=== PATIENT | female | born 1990 ===

== ENCOUNTER 2017-09-22 20:09 | Emergency (ER) | payer MEDICAID ==
[2017-09-22 20:56] VITALS: O2SAT 100
--- NOTE | 2017-09-22 21:21 | ED PDOC ---
HPI: Female Pain Time Seen by Provider: 09/22/17 21:00 Chief Complaint (Nursing): Female Genitourinary Chief Complaint (Provider): : vaginal bleeding History Per: Patient History/Exam Limitations: no limitations Onset/Duration Of Symptoms: Days (2) Current Symptoms Are (Timing): Still Present Quality Of Discomfort: Cramping Additional Complaint(s): 27 y/o female, approximately 5 weeks , presents for evaluation of vaginal bleeding with associated cramping x 2 days. Patient states bleeding was light yesterday, became heavier today with small clots. Denies fever, nausae/vomiting, chest pain, shortness of breath, palpitations, changes in bowel movements, urinary symptoms. Patient has not yet received care Abnormal Vaginal Bleeding: Yes Last Menstral Period: 08/09/17 : 2 Para: 1 Miscarriage: 0 Past Medical History Reviewed: Historical Data, Nursing Documentation, Vital Signs Vital Signs: Last Vital Signs Temp 98.9 F 09/22/17 20:51 Pulse 62 09/22/17 20:51 Resp 17 09/22/17 20:51 BP 128/74 09/22/17 20:51 Pulse Ox 100 09/22/17 20:51 - Medical History PMH: No Chronic Diseases - Surgical History Surgical History: No Surg Hx - Family History Family History: States: No Known Family Hx - Living Arrangements Living Arrangements: With Family - Allergies Allergies/Adverse Reactions: Allergies Allergy/AdvReac Type Severity Reaction Status Date / Time No Known Allergies Allergy Verified 09/22/17 20:56 Review of Systems ROS Statement: Except As Marked, All Systems Reviewed And Found Negative Genitourinary Female: Positive for: Vaginal Bleeding, Pelvic Pain Physical Exam - Reviewed Nursing Documentation Reviewed: Yes Vital Signs Reviewed: Yes - Physical Exam Appears: Positive for: Well, Non-toxic, No Acute Distress Head Exam: Positive for: ATRAUMATIC, NORMAL INSPECTION, NORMOCEPHALIC Skin: Positive for: Normal Color Eye Exam: Positive for: Normal appearance ENT: Positive for: Normal ENT Inspection Cardiovascular/Chest: Positive for: Regular Rate, Rhythm Respiratory: Positive for: Normal Breath Sounds Gastrointestinal/Abdominal: Positive for: Bowel Sounds, Soft. Negative for: Tenderness Pelvic Exam: Positive for: External Exam Normal, No Cerv. Motion Tender, Active Bleeding (minimal. Cervix closed), Other (exam fence erector Vy Mcdaniels RN) Back: Positive for: Normal Inspection Extremity: Positive for: Normal ROM Neurologic/Psych: Positive for: Alert, Oriented (x3) - Laboratory Results Result Diagrams: 09/22/17 21:58 09/22/17 21:58 - ECG O2 Sat by Pulse Oximetry: 100 - Progress ED Course And Treament: labs, urine, u/s EXAM: US , Transvaginal CLINICAL HISTORY: 27 years old, female; Signs and symptoms; Lmp or gestational age (in weeks): Unknown; Other: Bleeding; ; Additional info: , spotting TECHNIQUE: Real-time transvaginal obstetrical ultrasound of the maternal pelvis and a first trimester with image documentation. Transvaginal imaging was used for better evaluation of the fetus and adnexa. COMPARISON: No relevant prior studies available. FINDINGS: Gestation: Very small fluid collection is seen within the endometrium measuring 0.46 cm too small for dates. No internal structures are present. This may represent a small gestational sac The endometrium measures 15 mm Uterus/cervix: Unremarkable. No myometrial mass. 8.4 cm it x cm x 4.6 cm x 6.5 cm. The cervix measures 4.6 cm in length the os is closed. Ovaries: Unremarkable. No mass. RIGHT 2.1 cm x 1.3 cm x 1.9 cm. The LEFT 2.2 cm x 1.5 cm x 2.3 cm Free fluid: No free fluid. IMPRESSION: 1. Intrauterine fluid collection possible small gestational sac. 2. Negative uterus and cervix. 3. Negative ovaries Patient educated on findings, discharged with instructions to follow up with Ob/ Schedule Announcer in 48 hours for re-evaluation Return precautions given Disposition - Clinical Impression Clinical Impression: Threatened miscarriage - Patient ED Disposition Is Patient to be Admitted: No Counseled Patient/Family Regarding: Studies Performed, Diagnosis, Need For Followup - Disposition Disposition: Routine/Home Disposition Time: 23:45 Condition: STABLE Instructions: Threatened Miscarriage
[2017-09-22 22:28] LABS: BASO % 0.4 % (0.0-2.0); EOS # 0.1 K/uL (0.0-0.7); HEMOGLOBIN 11.6 g/dL (12.0-16.0); LYMPH # 1.8 K/uL (1.0-4.3); LYMPH % 31.4 % (20.0-40.0); MEAN CELL VOLUME 86.3 fl (81.0-99.0); MEAN CORPUSCULAR HEMOGLOBIN 28.2 pg (27.0-31.0); MEAN CORPUSCULAR HGB CONC 32.6 g/dL (33.0-37.0); MEAN PLATELET VOLUME 9.5 fl (7.2-11.7); MONO # 0.5 K/uL (0.0-0.8); MONO % 9.4 % (0.0-10.0); NEUT # 3.4 K/uL (1.8-7.0); NEUT % 57.8 % (50.0-75.0); NRBC % 0.1 % (0.0-0.0); RBC 4.12 Mil/uL (3.80-5.20); RED CELL DISTRIBUTION WIDTH 13.6 % (11.5-14.5); WHITE BLOOD COUNT 5.9 K/uL (4.8-10.8)
[2017-09-22 22:59] LABS: ALB/GLOB RATIO 1.3 (1.0-2.1); ALBUMIN 4.3 g/dL (3.5-5.0); AST/SGOT 39 U/L (14-36); BLOOD UREA NITROGEN 18 mg/dl (7-17); CALCIUM 9.2 mg/dL (8.4-10.2); GFR AFRICAN-AMERICAN > 60; GFR NON-AFRICAN AMERICAN > 60
[2017-09-22 23:00] LABS: ALT/SGPT 44 U/L (9-52)
[2017-09-22 23:55] VITALS: BP 112/75; PULSE 65; RESP 18; TEMP 98.2
--- NOTE | 2017-09-23 11:49 | US ---
Date of service: 09/22/2017 PROCEDURE: Limited ultrasound HISTORY: , spotting Beta HCC results unknown COMPARISON: None available. TECHNIQUE: Transvaginal only. Real -time technique with 2D, duplex and color Doppler FINDINGS: LMP: Unknown. Prior examinations from the current : None TECHNIQUE: Real-time 2D imaging, duplex and color Doppler. FINDINGS: No pole identified Gestational age Out of range. Below threshold for calculation of reliable gestational age. . Gestational sac measurement 0.46 cm. Gestational age derived from LMP: Cannot be ascertained based in the absence of a reliable/ known LMP STEVAN based on LMP: Cannot be ascertained based in the absence of a reliable/ known LMP STEVAN based on biometry: Cannot be determined Gestational concordance cannot be determined Yolk sac not identified Uterus: Unremarkable. Cervix: No Cervical abnormalities: Negative examination for cervical dilatation or effacement. Closed cervix measuring 4.69 cm Subchorionic hemorrhage: None UTERUS: 4.6 x 6.5 x 8.4 cm. ADNEXA: Right: 1.3 x 1.9 x 2.9 cm. Normal Doppler arterial waveform documented. Left: 1.5 x 2.2 x 2.3 cm. Normal Doppler arterial waveform documented Fluid in the cul-de-sac: None IMPRESSION: Tiny saclike structure perhaps gestational sac. No pole or yolk sac identified. Unremarkable uterus and adnexa. Concordant results (preliminary interpretation) provided by [facility]. Procedure Completed: 22:03 Preliminary ([facility]) Report: Dictated and Authenticated: 22:35 Final Interpretation: 11:47. September 23, 2017.
== END 2017-09-22 23:55 | disposition home or self-care (01) ==
LOC: H.ER 20:09
DX: O20.0 Threatened abortion (principal); Z3A.00 Weeks of gestation of pregnancy not specified

== ENCOUNTER 2017-09-24 17:29 | Emergency (ER) | payer MEDICAID ==
[2017-09-24 17:48] VITALS: BP 120/67; PULSE 67; RESP 19; TEMP 98.3; O2SAT 98
--- NOTE | 2017-09-24 18:55 | ED PDOC ---
HPI: Female Pain Time Seen by Provider: 09/24/17 17:52 Chief Complaint (Nursing): Female Genitourinary Chief Complaint (Provider): vaginal bleed Additional Complaint(s): preg vaginal bleeding x 5 days. initially spotting but heavier 2 days ago and presented to this ER. Advised to rter in 48 hours if bleeding persists. Pt reports that since Wednesday bleeding is essentially the same flow. Had vomiting 5 days ago that resolved. Past Medical History Reviewed: Historical Data, Nursing Documentation, Vital Signs Vital Signs: Last Vital Signs Temp 98.3 F 09/24/17 17:44 Pulse 67 09/24/17 17:44 Resp 19 09/24/17 17:44 BP 120/67 09/24/17 17:44 Pulse Ox 98 09/24/17 17:44 - Medical History PMH: No Chronic Diseases - Family History Family History: States: Unknown Family Hx - Allergies Allergies/Adverse Reactions: Allergies Allergy/AdvReac Type Severity Reaction Status Date / Time No Known Allergies Allergy Verified 09/22/17 20:56 Review of Systems ROS Statement: Except As Marked, All Systems Reviewed And Found Negative Genitourinary Female: Positive for: Vaginal Bleeding Physical Exam - Reviewed Nursing Documentation Reviewed: Yes Vital Signs Reviewed: Yes - Physical Exam Appears: Positive for: Non-toxic, No Acute Distress Gastrointestinal/Abdominal: Positive for: Soft. Negative for: Tenderness - ECG O2 Sat by Pulse Oximetry: 98 Medical Decision Making Medical Decision Making: lABS DEMONSTRATES DECREASE IN HCG Disposition - Clinical Impression Clinical Impression: Miscarriage Counseled Patient/Family Regarding: Studies Performed, Diagnosis, Need For Followup - Disposition [facility] ([facility]LLOW [facility] IN A WEEK FOR REEVALUATION) Disposition: Routine/Home Disposition Time: 19:27 Condition: STABLE Additional Instructions: DRINK PLENTY OF FLUIDS AND REST FOLLOW UP WITH [facility] OR [facility] IN A WEEK FOR FOLLOWUP RETURN TO ER FOR: --BLEEDING MORE THAN ONE PAD AN HOUR --SEVERE INTRACTABLE PAIN (YOU CAN TAKE TYLENOL OR MOTRIN FOR PAIN) --FAINTING OR NEAR FAINTING --ANY OTHER WORRISOME SYMPTOMS Instructions: Miscarriage
== END 2017-09-24 19:56 | disposition home or self-care (01) ==
LOC: H.ER 17:29
DX: O03.9 Complete or unspecified spontaneous abortion without complication (principal)